=== PATIENT | male | born 1950 | race Caucasian/White ===

== ENCOUNTER 2020-04-24 11:00 | Outpatient (REF) | payer OTHER, SELFPAY ==
--- NOTE | 2020-04-24 16:31 | SKI_PTH ---
PATIENT: Lino Rodas LOC: [facility] U#:[id number] AGE/SX: 69/M ROOM: RE04/24/[address]: Mohit Copeland DO : 1950 BED: DIS: 04/24/2020 SPEC #: [id number] RECD: 04/25/20 12:29 STATUS: HEIDI REEddi #: [id number] NICOLE: 04/24/20 16:[address]: Mohit Copeland DEPT: Surgical Specimen RECD BY: Shelley Yancey ENTERED: 04/25/20 12:30 SP TYPE: MARGUERITE PANDYA DR: Sabina Adams Tissues: 1 - SKIN BIOPSY(SHAVE/PUNCH) Procedures: GROSS AND MICRO LEVEL 5 Comments: [id number] (PLEASE DO STAT)
== END 2020-04-24 11:20 ==
LOC: LBN 11:00
PROVIDERS: PCP Physician Assistant Medical; Visit Provider Otolaryngology Otolaryngology/Facial Plastic Surgery
DX: C04.9 Malignant neoplasm of floor of mouth, unspecified (principal)
CPT/HCPCS: 88305; 88307

== ENCOUNTER 2020-05-03 00:23 | Outpatient (CLI) | payer OTHER, SELFPAY ==
--- NOTE | 2020-05-03 | DI.CT_ITS ---
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 Visua lized lung apices show severe emphysematous changes, predominantly central lobular. The visualized t rachea and the laryngeal structures appear intact. The patient reportedly has diagnosis of carcinoma of the tongue. There is effacement of border of th e base of the tongue, the posterior aspect of the pharynx, and the soft palate on the left the level of palatine and tonsils no well-defined mass is seen but there is a suggestion of an approximately 14 x 40 millimeter in diameter masslike finding involving the pharyngeal mucosal space at this level. No definite invasion of the parapharyngeal space although minimal invasion could be present. No cervical adenopathy. Salivary glands appear intact. No bony abnormality seen. Visualized portio ns of the brain are unremarkable. Vascular structures appear intact with moderate atheromatous disea se present at the carotid bifurcations bilaterally but and no evidence of carotid stenosis in excess of 50 percent of the luminal diameter. IMPRESSION: Findings consistent with poorly defined circumferential masslike distortion in left pharyngeal mucosa l space at the level of the tonsils, consistent with stated diagnosis of tongue carcinoma. No definite evidence of regional spread or remote metastatic disease. RADIATION DOSE DELIVERED: 361.57mGy.cm Total DLP
[2020-05-03 12:47] LABS: BUN 23 mg/dL (7-18); CREATININE 1.92 mg/dL (0.70-1.30)
[2020-05-03] MEDS: Omnipaque 350 MG/ML 100 ML BTL IJ (13:18)
[2020-05-03] MEDS: Normal Saline Flush 10 ML SYR IVP (13:19)
[2020-05-03] MEDS: Normal Saline - Diluent 50 ML VIAL IV (13:19)
== END 2020-05-03 00:43 ==
PROVIDERS: PCP Neuromusculoskeletal Medicine & OMM; Visit Provider Physician Assistant
DX: C02.9 Malignant neoplasm of tongue, unspecified (principal)
CPT/HCPCS: 70491; 84520; 82565; J3490

== ENCOUNTER → 2022-01-09 14:20 | Outpatient (BNVA) | payer MEDICARE, SELFPAY | PROVIDERS: PCP Neuromusculoskeletal Medicine & OMM; Referring Provider Neuromusculoskeletal Medicine & OMM; Visit Provider Nurse Practitioner Adult Health | DX: F10.20 Alcohol dependence, uncomplicated (principal); Z72.0 Tobacco use; F32.A Depression, unspecified; F40.240 Claustrophobia; I10 Essential (primary) hypertension; R41.89 Other symptoms and signs involving cognitive functions and awareness | CPT/HCPCS: 99204 ==

== ENCOUNTER → 2022-02-07 14:27 | Outpatient (BNVA) | payer MEDICARE, SELFPAY | PROVIDERS: PCP Neuromusculoskeletal Medicine & OMM; Referring Provider Neuromusculoskeletal Medicine & OMM; Visit Provider Nurse Practitioner Adult Health | DX: Z63.79 Other stressful life events affecting family and household (principal); R41.89 Other symptoms and signs involving cognitive functions and awareness | CPT/HCPCS: 99213 ==

== ENCOUNTER → 2022-09-05 09:35 | Outpatient (BNVA) | payer MEDICARE, SELFPAY | PROVIDERS: PCP Neuromusculoskeletal Medicine & OMM; Referring Provider Neuromusculoskeletal Medicine & OMM; Visit Provider Nurse Practitioner Adult Health | DX: R41.89 Other symptoms and signs involving cognitive functions and awareness (principal) | CPT/HCPCS: 99213 ==

== ENCOUNTER → 2024-07-20 13:48 | Outpatient (BNVA) | payer MEDICARE, SELFPAY | PROVIDERS: PCP Specialist/Technologist Athletic Trainer; Referring Provider Specialist/Technologist Athletic Trainer; Visit Provider Psychiatry & Neurology Neurology | DX: I63.9 Cerebral infarction, unspecified (principal); R41.89 Other symptoms and signs involving cognitive functions and awareness; E85.4 Organ-limited amyloidosis; I68.0 Cerebral amyloid angiopathy | CPT/HCPCS: 99215 ==

== ENCOUNTER → 2024-11-24 12:27 | Outpatient (BNVA) | payer MEDICARE, SELFPAY | PROVIDERS: PCP Specialist/Technologist Athletic Trainer; Referring Provider Specialist/Technologist Athletic Trainer; Visit Provider Psychiatry & Neurology Neurology | DX: I63.9 Cerebral infarction, unspecified (principal); R41.89 Other symptoms and signs involving cognitive functions and awareness; E85.4 Organ-limited amyloidosis; I68.0 Cerebral amyloid angiopathy; I12.9 Hypertensive chronic kidney disease with stage 1 through stage 4 chronic kidney disease, or unspecified chronic kidney disease; N18.9 Chronic kidney disease, unspecified | CPT/HCPCS: 99215 ==

== ENCOUNTER 2025-01-17 01:36 | Outpatient (CLI) | payer MEDICARE, SELFPAY ==
--- NOTE | 2025-01-17 08:54 | ST.MBS_ITS ---
Date of Service Date of service: 01/17/25 Time of Service: 09:00 Modified Barium Swallow Study Findings: Video fluoroscopic Swallowing Evaluation (VFSE) / Modified Barium Swallow Study (MBSS) Speech Language Pathology Report Patient referred for VFSE/MBSS from his PCP Dr. Mike Huerta given dysphagia complaints. 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 No history of XRT. He and his report regular/intermittent episodes (several days a week) of coughing on liquids which can occur with juice/water but also foods containing liquid like maple syrup. They also report a recent choking episode that occurred several minutes after eating a [place] sandwich. He states it felt like it was still in my throat and then spilled into my airway. No history of pneumonia/respiratory issues. Lino's does endorse unintended weight loss. IMPRESSIONS: Lino presents with at least moderate oral pharyngeal sensorimotor dysphagia with aspiration of thin liquids occurring in 1 out of 5 trials today. Sharan aspiration occurred on the second sip when prompted to take two subsequent sips. This was primarily a result of delayed swallow onset with the bolus reaching the pyriforms and spilling into the laryngeal vestibule and trachea during the swallow as well as delayed laryngeal vestibule closure. Immediate strong cough reflex is appreciated which did appear to expel the aspirated content. Aspiration is avoided with trials of mildly thick liquids, with small single sips of thin in neutral head position, as well as chin tuck technique with larger bolus size/rate. Additional findings include: slow/prolonged chewing/mashing (upper dentures & no lower dentition) slowed tongue motion for bolus transport, and mildly decreased hyolaryngeal movement anteriorly and superiorly. Primary deficits are sensory > motor, specifically delayed pharyngeal swallow onset as well as delayed laryngeal vestibule closure. See below for more detailed breakdown. Will continue to follow patient in outpatient for further dysphagia therapy. Swallow safety is impaired. Swallow efficiency is mildly impaired from an oral phase perspective (missing lower dentition) though ultimately WFL. Patient appears to be at moderate risk for potential aspiration PNA and/or pulmonary compromise and low risk for malnutrition, low risk for dehydration. Diet vladimir fication and aspiration precautions indicated. Swallow prognosis is good-fair given family/caregiver support and motivation. Negative prognostic factors include cognitive status. Patient appears to be a good candidate for behavioral swallow rehabilitation. Specialist referrals: ENT-- Patient previously active with E[place] [facility] with last visit in December 2020. Last ENT note states it is reasonable for PCP to manage follow up but should still come see me twice a year. While I am unclear how new vs chronic these dysphagia findings are, ENT referral for nasolaryngoscopy is recommended. Patient/ expressed interest in seeing Dr Stevens more locally. RECOMMENDATIONS: Diet Texture Recommendation:?IDDSI LEVEL SOLIDS 6-Soft & Bite-Sized Solids. Avoid Mixed consistencies (dry cereal and milk, soup, etc). If eating these foods, drain liquid off spoon. LIQUIDS 0-Thin Liquids - Small single sips. Use chin tuck technique. No straws. MEDICATIONS As tolerated. Consider whole in applesauce or one a time with water Diet texture modification is per patient's preference; please adjust diet textures at patient's discretion & collaboration with care team. Do not alter medications (e.g., cut)? without advice from your MD or pharmacist. Risk Management Strategies:? Small bites, approx [id number] Very small sips, approx 5mL / teaspoon Encourage avoidance of straws Multiple swallows per bolus to encourage clearance of pharyngeal stasis/residue Control risk factors for aspiration pneumonia via (a) thorough oral hygiene & (b) maintaining physical mobility as tolerated PLAN: Therapy: Recommend subsequent outpatient session with PUBLIC RELATIONS ACCOUNT SUPERVISOR to review results of today's exam and develop treatment plan as appropriate. May consider the following: Oropharyngeal Exercises to target deficits noted in objective section above Further Training/Education in Risk Management Goals: Manager Trade Marketing Goals: Patient will tolerate the safest/least restrictive diet while remaining free of aspiration related illness. Short Term Goals: Patient/caregiver will verbalize/demonstrate understanding of education r/t anatomy/physiology of normal vs disordered swallowing mechanism, overt s/sx to monitor for re: potential aspiration of food liquids, recommendations for improved oral care, relationship between respiratory function changes and deglutition, rationale for risk management strategies. Patient will tolerate IDDSI L6 Soft & Bite Size Diet and thin liquids without overt s/s aspiration across 2/2 sessions. OBJECTIVE Videofluoroscopic Swallow Evaluation (VFSE/MBSS) was conducted in the lateral projection by Speech-Language Pathologist, in collaboration with Radiologist, to evaluate oropharyngeal swallow function. Anatomic view under fluoroscopy: WFL PO Barium Contrast Trials Oral barium water-soluble contrast was administered as follows: IDDSI Level 0 Varibar thin liquid (40% w/v) IDDSI Level 2 Varibar nectar thick/mildly thick liquid (40% w/v) IDDSI Level 4 Varibar pudding/pureed/extremely thick (40% w/v) IDDSI Level 7 Regular Solid: 1/2 andrzej cracker coated in 3 mL Varibar pudding MBSImP Component Scores: COMPONENT Scale SCORE 1 Lip closure (0-4) 0 Resulted in no labial escape 2 Hold Position (0-3) 0 Maintained a cohesive bolus between tongue to palatal seal 3 Bolus Preparation (0-4) 1 Resulted in slow prolonged chewing/mashing with complete re-collection 4 Bolus Transport (0-4) 2 Was with slowed tongue motion 5 Oral Residue (0-4) 1 Was a trace, lining oral structures 6 Swallow Initiation (0-4) 3 Occurred when the bolus head was in the pyriform sinuses 7 Soft Palate Elevation (0-4) 0 Resulted in no bolus between soft palate and t he pharyngeal wall 8 Laryngeal Elevation (0-3) 1 Was decreased with partial superior movement of thyroid cartilage/partial approximation of arytenoids to epiglottic petiole 9 Anterior Hyoid Motion (0-2) 1 Demonstrated partial anterior movement 10 Epiglottic Movement (0-2) 0 Resulted in complete inversion 11 Laryngeal Closure (0-2) 1 Was incomplete with a narrow column of air or contrast in laryngeal vestibule Primary issue is delayed laryngeal vestibule closure 12 Pharyngeal Stripping Wave (0-2) 0 Was present and complete 13 Pharyngeal Contraction (0-3) 0 Was complete 14 PES Opening (0-3) 0 Was completely distended and complete duration with no obstruction of flow 15 Tongue Base Retraction (0-4) 1 Allowed a trace column of contrast or air between tongue base and pharyngeal wall 16 Pharyngeal Residue (0-4) 1 Showed a trace within or on pharyngeal structure s 17 Esophageal Clearance (0-4) 0 Was complete, with only a coating of contrast, if any Results: COMPONENT Scale SCORE 1 Oral Score (0-18) 6 2 Pharyngeal Score (0-29) 2 3 Esophageal Score (0-4) 0 Functional Oral Intake Scale: COMPONENT Scale SCORE 1 Pre-Study (1-7) 7 Total oral intake with no restrictions 2 Post-Study (1-7) 6 Total oral intake with no special preparation, but must avoid specific foods or liquid items Penetration-Aspiration Scale: COMPONENT0 Scale SCORE 1 Thin liquid (1-8) 6 Contrast entered the airway, passed below the vocal fold s, and was ejected into the larynx or out of the airway. 2 [place] thick (1-8) 1 Contrast did not enter the airway 3 Honey thick (1-8) NA 4 Pudding thick (1-8) 1 Contrast did not enter the airway 5 Cookie (1-8) 1 Contrast did not enter the airway Trialed Compensatory Strategies & Outcome: Maneuvers Successful (+) Unsuccessful (-) Postures Successful (+) Unsuccessful (-) 3 second Preparatory Set? ? + Chin Tuck Posture? ? + ? Cough? ? Posterior Head tilt? Reflexive? Cued? Throat Clear? ? Head Tilt to? Reflexive? Left? Cued? Right? ? Saliva swallow? ? Head Turn/Rotate to? ? Supraglottic Swallow? Left? ? Super-supraglottic Swallow? Right? ? Bolus Modifications Successful (+) Unsuccessful (-) Delivery/Alternating Consistencies ? Follow with Liquid Wash ? Follow with Solid Bolus? Delivery/Via Straw? ? Reduced Volume? + ? Reduced Rate of Intake? ? + ? Increased Viscosity? ? Other:?? ? Thank you for allowing us to take part in this patient's care. Please feel free to contact the [facility] Speech Language Pathology Department with any questions/concerns.
--- NOTE | 2025-01-17 09:35 | DI.RAD_ITS ---
Exam(s) RF MODIFIED SPEECH BA SWALLOW EXAM: RF MODIFIED SPEECH BA SWALLOW CLINICAL HISTORY: Dysphagia, R13.10; personal h/o malignant neoplasm of unspecified site of TECHNIQUE: Modified barium swallow was performed in conjunction with speech pathology. CONTRAST MATERIAL: Multiple consistencies of oral barium contrast were administered. COMPARISON: No exams were available for comparison FINDINGS: Note that this is not a dedicated esophagram, distal esophagus not evaluated. Aspiration was observed with consecutive swallows of thin liquid consistency barium.. Speech pathology report to follow. IMPRESSION: Aspiration of thin liquid. RADIATION DOSE DELIVERED: shea Burk=4.24 mGy
[2025-01-17] MEDS: Barium Sulfate 81% w/w for Oral Suspension 148 GM BTL PO (09:52)
[2025-01-17] MEDS: Barium Sulfate Oral Paste 40% W/V 230 ML TUBE PO (09:53)
[2025-01-17] MEDS: Barium Sulfate 40% W/V 240 ML BTL PO (09:55)
== END 2025-01-17 01:56 ==
LOC: DI 01:37
PROVIDERS: PCP Specialist/Technologist Athletic Trainer; Visit Provider Specialist/Technologist Athletic Trainer
DX: R13.11 Dysphagia, oral phase (principal)
CPT/HCPCS: 92526; 74221

== ENCOUNTER 2025-03-07 02:51 | Outpatient (CLI) | payer MEDICARE, SELFPAY ==
--- NOTE | 2025-03-07 09:30 | DI.US_ITS ---
APPROVED REPORT EXAM: Comprehensive 2D, Doppler, and color-flow Echocardiogram Patient Location: Out-Patient Equities Trader: Jessica Owen RDCS (AE) Indications: Fatigue, HTN, Hypotension, ? Structural heart abmormalities Other Information Study Quality: Fair. Technically limited study due to body habitus. Conclusion Normal left ventricular wall thickness and chamber size. Ejection fraction is 55%. Wall motion is normal Normal right ventricular size and function Both atria are normal in size Aortic valve is mildly sclerotic and trileaflet without stenosis or regurgitation There is no additional significant valvular disease Wall motion Left Ventricle The left ventricle is normal size. The left ventricular systolic function is normal. The left ventricular ejection fraction is within the normal range. There is normal left ventricular wall thickness. There is normal LV segmental wall motion. There is no ventricular septal defect visualized. LVEF is 55%. Right Ventricle Right ventricle is grossly normal in size. Right ventricular systolic function is grossly normal. Atria The left atrium size is normal. The right atrium size is normal. The interatrial septum is intact with no evidence for an atrial septal defect. Aortic Valve The Aortic valve is mildly sclerotic. Aortic valve is trileaflet. There is no aortic valvular stenosis. No aortic regurgitation is present. Mitral Valve The mitral valve is normal in structure. No evidence of mitral valve stenosis. Trace mitral regurgitation. Tricuspid Valve The tricuspid valve is normal in structure. There is no tricuspid valve stenosis. Trace tricuspid regurgitation. Unable to assess PA pressure. Pulmonic Valve The pulmonary valve is normal in structure. There is no pulmonic valvular stenosis. Trace to mild pulmonic regurgitation. Great Vessels The aortic root is normal in size. The ascending aorta is normal in size. Aortic arch is normal in caliber. IVC is normal in size and collapses >50% with inspiration. Pericardium There is no pericardial effusion. 2D Dimensions IVSD d PLAX 1.00 cm M: 0.6-1.2 Ao Root d 3.44 cm M: 3.1 - 3.7 LVPW d PLAX 1.00 cm M: 0.6 - 1.2 Ao Asc Diam d 3.36 cm M: 2.6 - 3.4 LVID d PLAX 4.20 cm M: 4.2 - 5.8 LVDs 3.00 cm M: 2.5 - 4.0 LV EF Teichholz 54.6 % FS 28.00 % LV EDV (Teich) 77.0 mL LV ESV (Teich) 35.0 mL M-Mode TAPSE 1.95 cm (M/F) >1.7 Auto EF LV EDV A4C 84.1 mL LV EDV A2C 89.6 mL LV EDV BP 87.2 mL LV ESV A4C 37.7 mL LV ESV A2C 40.3 mL LV ESV BP 38.1 mL LVEF(%) A4C 55.2 % LVEF(%) A2C 55.0 % LVEF(%) BP 56.3 % LV SV A4C 46.4 ml LV SV A2C 49.3 ml LV SV BP 49.1 ml LV CO A4C 3.1 L/min LV CO A2C 3.1 L/min LV CO BP 3.1 L/min HR A4C 65.93 BPM HR A2C 62.72 BPM LV EDV Index (BP) LV Diastology MV E' medial 0.082 (>0.07 m/s) MV E Vmax 0.60 (0.4-1.3 m/s) MV E/E' MED 7.37 (<14) MV A Vmax 0.65 (0.4-1.3 m/s) MV E' lateral 0.080 (>0.1 m/s) E/A Ratio 0.9 MV E/E' LAT 7.53 (<14) MV E' Average 0.081 m/s MV E/E'(average) 7.45 Aortic Valve AoV Vmax 1.07 m/s LVOT Vmax 0.58 m/s AoV Peak Grad 4.6 mmHg LVOT Peak Grad 1.4 mmHg AoV Area (Vmax) 1.92 cm2 LVOT VTI 0.124 m AoV VTI 0.238 m LVOT Mean Grad 0.7 mmHg AoV Mean Buzz. 0.75 m/s LVOT SV 43.63 mL AoV Mean Grad 2.5 mmHg LVOT Diam s 2.10 cm AoV Area (VTI) 1.84 cm2 AV Regurg Peak Gr. 4.61 mmHg Velocity Ratio 0.54 Mitral Valve MV DT 278 (160-240 msec) MV Vmax TIPS 0.65 m/s MV Mean Grad 0.6 (<2mmHg) MV VTI 0.217 m Pulmonary Valve PV Vmax 0.91 (0.5-1.5 m/s) RVOT Vmax 0.77 m/s PV Peak Grad 3.3 mmHg RVOT Peak Gr. 2.4 mmHg PV Mean Buzz 0.61 m/s RVOT VTI 0.162 m PV Mean Grad 1.8 mmHg RVOT Mean Gr. 1.1 mmHg Tricuspid Valve RA Pressure 3.00 mmHg TV S' 0.12 m/s
== END 2025-03-07 03:11 ==
LOC: DI 02:51
PROVIDERS: PCP Specialist/Technologist Athletic Trainer; Visit Provider Family Medicine
DX: I10 Essential (primary) hypertension (principal); I35.0 Nonrheumatic aortic (valve) stenosis; R53.83 Other fatigue; I95.9 Hypotension, unspecified
CPT/HCPCS: 93306

== ENCOUNTER → 2025-04-04 09:15 | Outpatient (BNVA) | payer MEDICARE, MEDICAID, SELFPAY | PROVIDERS: PCP Specialist/Technologist Athletic Trainer; Referring Provider Specialist/Technologist Athletic Trainer; Visit Provider Psychiatry & Neurology Neurology | DX: I63.9 Cerebral infarction, unspecified (principal); E85.4 Organ-limited amyloidosis; I68.0 Cerebral amyloid angiopathy; R41.89 Other symptoms and signs involving cognitive functions and awareness; I12.9 Hypertensive chronic kidney disease with stage 1 through stage 4 chronic kidney disease, or unspecified chronic kidney disease; N18.9 Chronic kidney disease, unspecified | CPT/HCPCS: 99214 ==